=== PATIENT | male | born 1965 | race Caucasian/White ===

== ENCOUNTER 2018-10-04 14:00 | Outpatient (CLI) | payer OTHER ==
[~2018-10-04] VITALS: Ht 175.3 cm; Wt 102.1 kg
[~2018-10-04 14:00] MED LIST: MOME13HF IH
[2018-10-04] MEDS ORDERED: NEBI20TA2 PO (14:03)
[2018-10-04] MEDS ORDERED: NF-ESOM40C PO (14:03)
== END 2018-10-04 14:04 | disposition home or self-care (01) ==
LOC: PREOP 14:00
PROVIDERS: ATTEND Surgery
DX: Z01.818 Encounter for other preprocedural examination (principal)

== ENCOUNTER 2018-10-08 10:01 | Day surgery (SDC) | payer OTHER ==
[~2018-10-08] VITALS: Ht 175.3 cm; Wt 102.1 kg
[~2018-10-08 10:01] MED LIST changes: +NEBI20TA2 PO; +NF-ESOM40C PO
[2018-10-08] MEDS ORDERED: LACTATED RINGERS 1,000 ML IV ONE (10:05)
[2018-10-08] MEDS ORDERED: PROPOFOL INJECTION 50 ML IV ONE (10:13)
[2018-10-08] MEDS ORDERED: MIDAZOLAM 2 MG/2 ML (VERSED) VIAL ONE (10:14)
--- NOTE | 2018-10-08 10:28 | Progress Note-Pre Operative ---
Pre-Operative Progress Note H&P Reviewed The H&P was reviewed, patient examined and no changes noted. Time Seen by Provider: 10:26 Date H&P Reviewed: Oct 08, 2018 Time H&P Reviewed: 10:27 Pre-Operative Diagnosis: Leon's Esophagus, Screening colonoscopy JANELL BUTLER DO Oct 08, 2018 10:28
[2018-10-08] MEDS ORDERED: HURRICAINE EXT TUBE (BENZOCAINE) ONE (10:42)
[2018-10-08] MEDS ORDERED: LACTATED RINGERS 1,000 ML IV STA (10:45)
[2018-10-08] MEDS ORDERED: HURRICAINE EXT TUBE (BENZOCAINE) XX PRN (10:45)
[2018-10-08 10:55] VITALS: BP 156/105
[2018-10-08 11:00] VITALS: BP 151/96
--- NOTE | 2018-10-08 11:02 | Progress Note-Post Operative ---
Post-Operative Progess Note Surgeon (s)/Renewable Energy Broker (s) Surgeon JANELL BUTLER DO Renewable Energy Broker: none Pre-Operative Diagnosis Leon's Esophagus, Screening colonoscopy Post-Operative Diagnosis Leon's esophagus Gastritis Internal hemorrhoids Procedure & Operative Findings Date of Procedure 10/08/18 Procedure Performed/Findings EGD with bx Colonoscopy Anesthesia Type IV sedation by LEVEL VIAL CURVATURE GAUGER Estimated Blood Loss Estimated blood loss (mL): scant Specimens/Packing Specimens Removed antral bx body of stomach bx GE jxn bx x 3 JANELL BUTLER DO Oct 08, 2018 11:02
[2018-10-08] MEDS ORDERED: SUCR1TAB36 PO (11:03)
--- NOTE | 2018-10-08 11:03 | Endoscopy Discharge Instruct ---
Endo Procedure/Findings Findings 1.: Leon's Esophagus 2.: Gastritis 3.: Internal Hemorrhoids Discharge Instructions - Activity: You might feel a little sleepy until tomorrow. This is due to the medicine you received to relax you. Until tomorrow, you should: NOT drive a car, operate machinery or power tools. NOT drink any alcoholic beverages. NOT make any important decisions or sign importortant papers. Do not return to work until tomorrow, unless otherwise instructed. Resume previous activities tomorrow. Diet: Start by taking liquids. If you tolerate liquids, advance to solid food. make an appointment for one week. Instructions: 1.: EGD in 6-8 weeks Notify Physician - If you experience excessive bleeding, unusual abdominal pain, fever, or chest pain, contact your doctor immediately. Follow-Up: - I have received and understand the above instructions and will call my doctor if I have any further questions. Patient Signature Date Nurse Signature Other (Relationship) JANELL BUTLER DO Oct 08, 2018 11:03
[2018-10-08 11:05] VITALS: BP 157/100
[2018-10-08 11:10] VITALS: BP 157/100
[2018-10-08 11:30] VITALS: BP 176/111
[2018-10-08 11:55] VITALS: BP 176/111
--- NOTE | 2018-10-08 19:02 | OPERATIVE REPORT ---
DATE OF SERVICE: 10/08/2018 PREOPERATIVE DIAGNOSES: 1. Chronic gastritis. 2. Screening colonoscopy. POSTOPERATIVE DIAGNOSES: 1. Leon's esophagus. 2. Gastritis. 3. Internal hemorrhoids. PROCEDURE: 1. EGD with biopsy. 2. Colonoscopy. SURGEON: Ortiz Lambert DO INVENTORY CONTROL ANALYST: None. ANESTHESIA: IV sedation by the AQUATICS LIFEGUARD. SPECIMEN: Biopsy from antrum. Biopsy from the stomach and then 3 biopsies from the GE junction. BLOOD LOSS: Scant. FLUIDS: Per anesthesia. POSTOPERATIVE CONDITION: Stable. INDICATION FOR PROCEDURE: The patient is a 53-year-old male who has chronic gastritis, history of Leon's esophagus and needed an EGD as well as he is 53 and needs a screening colonoscopy. FINDINGS: The patient had what looked like a Leon's esophagus as well as some gastritis, questionable small hiatal hernia and in the colon he just had some internal hemorrhoids. PROCEDURE NOTE: After informed consent was obtained, the patient was brought to the endoscopy suite and placed in the bed in left lateral decubitus position. He was administered IV sedation by the AQUATICS LIFEGUARD who then monitored his vitals the entire time, heart rate, blood pressure and pulse ox. Scope was inserted down the mouth through the esophagus and the base of the esophagus where the GE junction, looked like there was some Leon's esophagus, took a picture of this and then pushed into the stomach and towards the antrum, looked like he had some gastritis, took a picture of this pushing the duodenum. Duodenum looked fine. Pulled the scope back into the antrum, did a biopsy of the antrum and then pulled back and did a biopsy of body of stomach. I retroflexed the scope, looked like there was a very small hiatal hernia and then pulled back into the GE junction. Again, here looked like there was some Leon's esophagus and did biopsies in 3 different spots around the GE junction, pulled the scope up the esophagus and out the mouth. Switched camera, switched gloves and went down below, started the colonoscopy pushed the scope into about 140 cm, able to get all the way to cecum, took a picture of appendiceal orifice, noted the ileocecal valve and then slowly withdrew the scope insufflating to look circumferentially at the lundy looking at the cecum up the ascending colon to hepatic flexure, down the transverse colon, the splenic flexure, into the descending colon down in the sigmoid and finally into the rectum, retroflexed the rectal vault, saw some internal hemorrhoids. No other obvious pathology. Scope was removed. The patient tolerated the procedure. He was recovered in endoscopy suite. Job ID: [id number] DocumentID: [id number] Dictated Date: 10/08/2018 13:56:10 School Resource Officer Date: 10/08/2018 19:00:33 Dictated By: ORTIZ LAMBERT DO
== END 2018-10-08 11:55 | disposition home or self-care (01) ==
LOC: ENDO 10:01
PROVIDERS: ATTEND Surgery
DX: Z12.11 Encounter for screening for malignant neoplasm of colon (principal); K22.70 Barrett's esophagus without dysplasia; K29.50 Unspecified chronic gastritis without bleeding; K64.8 Other hemorrhoids; I10 Essential (primary) hypertension; J45.909 Unspecified asthma, uncomplicated; K21.9 Gastro-esophageal reflux disease without esophagitis; Z79.899 Other long term (current) drug therapy
CPT/HCPCS: 88305

== ENCOUNTER 2020-02-24 23:49 | Emergency (ER) | payer OTHER ==
[~2020-02-24] VITALS: Ht 175.3 cm; Wt 106.1 kg
[~2020-02-24 23:49] MED LIST changes: +SUCR1TAB36 PO
[2020-02-25 00:01] VITALS: BP 192/116
[2020-02-25] MEDS ORDERED: TETRACAINE 0.5% OPHTH SOLN 4 ML BTL (SINGLE DOSE ONLY) ONE (00:16)
[2020-02-25] MEDS ORDERED: FLUORESCEIN (FLUOR-I-STRIPS) 1 MG STRP ONE (00:16)
--- NOTE | 2020-02-25 00:30 | ED EENT ---
History of Present Illness General Chief Complaint: Eye Problems Stated Complaint: F O IN RT EYE Nursing Triage Note: PT AMBULATE TO ROOM 05 WITH C/O FOREIGN BODY IN RIGHT EYE. 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 Source: patient Exam Limitations: no limitations History of Present Illness Date Seen by Provider: Feb 25, 2020 Time Seen by Provider: 00:25 Initial Comments 54-year-old male presents to the emergency department today with a chief complaint of right eye pain and drainage. Patient states that he was working with fiberglass earlier in the day and believes he might of gotten some fiberglass in his right eye. Patient states that with drainage his vision is a little bit blurry otherwise its not. He states that he feels like there is something still in his eye. All other review of systems reviewed and negative except as stated above. Timing/Duration: abrupt Severity: mild Location: eye (R) Prearrival Treatment: no prearrival treatment Associated Symptoms: denies symptoms Allergies and Home Medications Allergies Coded Allergies: No Known Drug Allergies (Unverified , 10/04/18) Home Medications Esomeprazole Magnesium 40 Mg Cap, 40 MG PO DAILY PRN for HEARTBURN, (Reported) Mometasone/Formoterol 13 Gm Hfa.aer.ad, 13 GM IH BID PRN for SHORTNESS OF BREATH, (Reported) Nebivolol HCl 20 Mg Tablet, 20 MG PO DAILY, (Reported) Sucralfate 1 Gm Tablet, 1 GM PO QIDACHS Prescribed by: JANELL BUTLER on 10/08/18 1103 Patient Home Medication List Home Medication List Reviewed: Yes Review of Systems Review of Systems Constitutional: see HPI Eyes: See HPI, Drainage, Foreign Body Sensation, Pain; Denies Vision Changes Ears: No Symptoms Reported Nose: no symptoms reported Mouth: no symptoms reported Throat: no symptoms reported Respiratory: no symptoms reported Cardiovascular: no symptoms reported Gastrointestinal: no symptoms reported Musculoskeletal: no symptoms reported Skin: no symptoms reported All Other Systems Reviewed Negative Unless Noted: Yes Past Astfzae-Bupneb-Erwfuc Hx Patient Social History Alcohol Use: Regular Use Alcohol Beverage of Choice: Beer, Whiskey Recreational Drug Use: No Smoking Status: Never a Smoker Recent Foreign Travel: No Contact w/Someone Who Travel: No Recent Infectious Disease Expo: No Recent Hopitalizations: No Physical Abuse: No Sexual Abuse: No Mistreated: No Fear: No Seasonal Allergies Seasonal Allergies: No Past Medical History Surgeries: Yes (rhinoplasty, knee scope) Respiratory: Yes Asthma Cardiac: Yes Hypertension Neurological: No Genitourinary: No Gastrointestinal: Yes (chronic gastritis) Gastroesophageal Reflux, Leon's Esophagus Musculoskeletal: No Endocrine: No HEENT: No Cancer: No Psychosocial: No Integumentary: No Blood Disorders: No Visual Acuity : Eye Location: Right (20/25) Vision Acuity Degree: 20/25 Physical Exam Vital Signs Vital Signs - First Documented 02/25/20 00:01 Temp 36.5 Pulse 68 Resp 17 B/P (MAP) 192/116 (141) O2 Delivery Room Air Height, Weight, BMI Height: 5'9.00" Weight: 225lbs. 0.0oz. 102.927012tm; 34.00 BMI Method: General Appearance: WD/WN, no apparent distress Eyes: right eye lid inflammation; left eye normal inspection, left eye PERRL, left eye EOMI Cardiovascular: regular rate, rhythm Respiratory: no respiratory distress, no accessory muscle use Neurologic/Psychiatric: alert, normal mood/affect, oriented x 3 Skin: normal color, warm/dry Progress/Results/Core Measures Results/Orders My Orders Orders - CARLA PHAN MD Fluorescein Strips ([id number]) (02/25/20 00:16) Tetracaine 0.5% Ophth Anupama Sdv (Tetracai (02/25/20 00:16) Vital Signs/I&O 02/25/20 00:01 Temp 36.5 Pulse 68 Resp 17 B/P (MAP) 192/116 (141) O2 Delivery Room Air Blood Pressure Mean: 141 Progress Progress Note : Time: 00:48 Progress Note Patient's visual acuity left 20/30, right 20/25, bilaterally 20/25. Patient was examined with a slit lamp. Demonstrated ciliary flush. No foreign bodies identified. Patient had minimal if any uptake on fluorescein staining. Patient's blood pressure is quite elevated this evening. He has not been taking his blood pressure medication. Is treated with clonidine 0.1 mg here in the emergency department and patient states that he will go home and continue to take his blood pressure medicine as directed. Patient is advised to follow-up with an eye doctor by the end of the week to ensure that his eye is healing. He verbalized understanding of his discharge instructions. All questions are sought and answered and he is stable for discharge. Departure Impression Primary Impression: Sensation of foreign body in eye Additional Impression: Elevated blood pressure reading Disposition: 01 HOME, SELF-CARE Condition: Stable Departure-Patient Inst. Decision time for Depature: 00:43 Referrals: MENA NARANJO MD (PCP/Family) Primary Care Physician Patient Instructions: Corneal Abrasion (DC) Add. Discharge Instructions: Use ibuprofen as needed for eye pain and discomfort. Use the antibiotic eye drop as directed for the next week. Please continue to take your blood pressure medications as directed and follow up with your primary care doctor. Call and follow up by the end of the week with an eye doctor, to ensure your eye is healing appropriately. All discharge instructions reviewed with patient and/or family. Voiced understanding. Scripts Ciprofloxacin HCl (Ciloxan) 5 Ml Drops 3 DROPS OP BID for 5 Days, DROPS 3 Refills 2 drops right eye every 4 hours for 1 week Prov: CARLA PHAN MD 02/25/20 CARLA PHAN MD Feb 25, 2020 00:30
[2020-02-25] MEDS ORDERED: CIPR5DRO OP (00:52)
[2020-02-25] MEDS ORDERED: cloNIDine 0.1 MG (CATAPRES) TAB PO ONE (01:00)
[2020-02-25] MEDS ORDERED: TETANUS,DIPTH,PERTUSS P/F (BOOSTRIX) 0.5 ML VIAL IM ONE (01:00)
== END 2020-02-25 01:06 | disposition home or self-care (01) ==
LOC: EDUNIT# 23:49 → ER 23:54
DX: H57.89 Other specified disorders of eye and adnexa (principal); I10 Essential (primary) hypertension; K21.9 Gastro-esophageal reflux disease without esophagitis; J45.909 Unspecified asthma, uncomplicated; Z79.52 Long term (current) use of systemic steroids
CPT/HCPCS: 90715; 99284

== ENCOUNTER → 2021-02-24 | Outpatient (CLI) | payer OTHER ==
[~2021-02-24] MED LIST changes: +CIPR5DRO OP
--- NOTE | 2021-02-24 09:43 | Diagnostic Imaging Report ---
PA and lateral chest at 908 hours. INDICATION: Chest pressure. COMPARISON: None. FINDINGS: The heart size is within normal limits. The lungs are clear. There is no evidence for failure, pneumonia or for a pleural effusion. The mediastinum is not widened. The osseous structures are intact. IMPRESSION: There is no evidence for active disease. Dictated by: Dictated on workstation # [id number]
== END ==
LOC: RAD 08:33
DX: R07.89 Other chest pain (principal)
CPT/HCPCS: 71046

== ENCOUNTER 2021-06-14 23:45 | Emergency (ER) | payer OTHER ==
[~2021-06-14] VITALS: Ht 175 cm; Wt 106.6 kg
[2021-06-15] MEDS ORDERED: ASPIRIN 81 MG CHEW (CHILDREN'S ASA) PO ONE
[2021-06-15] MEDS ORDERED: NITROGLYCERIN 0.4 MG SL TABS BTL 25'S SL PRN
--- NOTE | 2021-06-15 00:05 | ED Chest Pain ---
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[employer] PT C/O LEFT UPPER CHEST PAIN THAT BEGAN AROUND NOON TODAY NO RADIATION OF PAIN NOTHING WORSENS PAIN STATES IF HE GRABS HIS CHEST AND PULLS ON HIS LEFT UPPER CHEST WITH HIS RIGHT HAND IT EASES HIS PAIN A LITTLE BIT RATES PAIN 6/10 AT WORKS, 4/10 NOW NO SHORTNESS OF BREATH NO SWEATS NO SWELLING IN LEGS/ FEET OR PAIN IN CALVES NO NAUSEA/VOMITING NO DIZZINESS OR SYNCOPE NO PALPITATIONS NO FEVER OR RECENT ILLNESS NO COUGH HAS NOT TAKEN ANYTHING FOR SYMPTOMS PT HAS HISTORY OF HTN AND FREQUENTLY FORGETS TO TAKE HIS MEDICATION, BUT DID TAKE IT TODAY ALSO HAS HISTORY OF GERD WITH WHITT'S ESOPHAGITIS, AND ASTHMA PT HAD SIMILAR PAIN A COUPLE OF MONTHS AGO, BUT WAS NOT THIS BAD FOLLOWED UP WITH DR. NARANJO, AND HE DID A STRESS TEST IN THE OFFICE, THAT WAS REPORTEDLY NORMAL. PT LAST SAW HIM ABOUT A MONTH AGO PT HAS NEVER SEEN A CHIP TESTER PT HAS NOT HAD COVID OR FLU VACCINES PCP: DR. NARANJO Allergies and Home Medications Allergies Coded Allergies: No Known Drug Allergies (Unverified , 10/04/18) Patient Home Medication List Home Medication List Reviewed: Yes Ciprofloxacin HCl (Ciloxan) 5 Ml Drops, 3 DROPS OP BID Prescribed by: CARLA PHAN on 02/25/20 0052 Esomeprazole Magnesium (Nexium) 40 Mg Cap, 40 MG PO DAILY PRN for HEARTBURN, (Reported) Entered as Reported by: BETZY CORDOBA on 10/04/18 1403 Mometasone/Formoterol (Dulera 200 Mcg/5 Mcg Inhaler) 13 Gm Hfa.aer.ad, 13 GM IH BID PRN for SHORTNESS OF BREATH, (Reported) Entered as Reported by: BETZY CORDOBA on 10/04/18 1357 Nebivolol HCl (Bystolic) 20 Mg Tablet, 20 MG PO DAILY, (Reported) Entered as Reported by: BETZY CORDOBA on 10/04/18 1403 Sucralfate (Carafate) 1 Gm Tablet, 1 GM PO QIDACHS Prescribed by: JANELL BUTLER on 10/08/18 1103 Review of Systems Review of Systems Constitutional: no symptoms reported EENTM: No Symptoms Reported Respiratory: No Symptoms Reported Cardiovascular: See HPI, Chest Pain Gastrointestinal: No Symptoms Reported Genitourinary: No Symptoms Reported Musculoskeletal: no symptoms reported Skin: no symptoms reported Psychiatric/Neurological: No Symptoms Reported Endocrine: No Symptoms Reported Hematologic/Lymphatic: No Symptoms Reported Past Zsiucjv-Kfqzgc-Rwtjro Hx Patient Social History Tobacco Use?: No Substance use?: No Alcohol Use?: Yes Alcohol Frequency: Couple times a week Seasonal Allergies Seasonal Allergies: No Past Medical History Surgeries: Yes (rhinoplasty, knee scope) Nose, Orthopedic Respiratory: Yes Asthma Cardiac: Yes Hypertension Neurological: No Genitourinary: No Gastrointestinal: Yes (chronic gastritis) Gastroesophageal Reflux, Whitt's Esophagus Musculoskeletal: No Endocrine: No HEENT: No Cancer: No Psychosocial: No Integumentary: No Blood Disorders: No Physical Exam Vital Signs Vital Signs - First Documented 06/14/21 23:55 Temp 36.6 Pulse 58 Resp 20 Pulse Ox 97 O2 Delivery Room Air Capillary Refill : Height, Weight, BMI Height: 5'9.00" Weight: 225lbs. 0.0oz. 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 II-XII Norm as Tested Skin: Normal Color, Warm/Dry; No Rash Progress/Results/Core Measures Results/Orders Lab Results Laboratory Tests Test 06/15/21 00:01 Range/Units White Blood Count 13.3 H 4.3-11.0 10^3/uL Red Blood Count 5.63 H 4.30-5.52 10^6/uL Hemoglobin 16.2 13.3-17.7 g/dL Hematocrit 49 40-54 % Mean Corpuscular Volume 87 80-99 fL Mean Corpuscular Hemoglobin 29 25-34 pg Mean Corpuscular Hemoglobin Concent 33 32-36 g/dL Red Cell Distribution Width 13.6 10.0-14.5 % Platelet Count 340 130-400 10^3/uL Mean Platelet Volume 10.1 9.0-12.2 fL Immature Granulocyte % (Auto) 0 % Neutrophils (%) (Auto) 54 42-75 % Lymphocytes (%) (Auto) 32 12-44 % Monocytes (%) (Auto) 8 0-12 % Eosinophils (%) (Auto) 5 0-10 % Basophils (%) (Auto) 1 0-10 % Neutrophils # (Auto) 7.2 1.8-7.8 10^3/uL Lymphocytes # (Auto) 4.3 H 1.0-4.0 10^3/uL Monocytes # (Auto) 1.0 0.0-1.0 10^3/uL Eosinophils # (Auto) 0.7 H 0.0-0.3 10^3/uL Basophils # (Auto) 0.1 0.0-0.1 10^3/uL Immature Granulocyte # (Auto) 0.0 0.0-0.1 10^3/uL Prothrombin Time 12.8 12.2-14.7 SEC INR Comment 0.9 0.8-1.4 Activated Partial Thromboplast Time 29 24-35 SEC D-Dimer 0.22 0.00-0.49 UG/ML Sodium Level 143 135-145 MMOL/L Potassium Level 4.1 3.6-5.0 MMOL/L Chloride Level 105 98-107 MMOL/L Carbon Dioxide Level 22 21-32 MMOL/L Anion Gap 16 H 5-14 MMOL/L Blood Urea Nitrogen 15 7-18 MG/DL Creatinine 0.94 0.60-1.30 MG/DL Estimat Glomerular Filtration Rate 96 BUN/Creatinine Ratio 16 Glucose Level 96 70-105 MG/DL Calcium Level 9.5 8.5-10.1 MG/DL Corrected Calcium 8.5-10.1 MG/DL Magnesium Level 2.3 1.6-2.4 MG/DL Total Bilirubin 0.4 0.1-1.0 MG/DL Aspartate Amino Transf (AST/SGOT) 21 5-34 U/L Alanine Aminotransferase (ALT/SGPT) 35 0-55 U/L Alkaline Phosphatase 58 40-136 U/L Total Creatine Kinase 88 30-200 U/L Creatine Kinase MB 0.7 <6.6 NG/ML Myoglobin 30.4 10.0-92.0 NG/ML Troponin I < 0.028 <0.028 NG/ML B-Type Natriuretic Peptide 18.3 <100.0 PG/ML Total Protein 7.4 6.4-8.2 GM/DL Albumin 4.6 H 3.2-4.5 GM/DL Amylase Level 67 25-125 U/L Lipase 54 8-78 U/L Serum Alcohol < 10 <10 MG/DL Influenza Type A (RT-PCR) Not Detected Not Detecte Influenza Type B (RT-PCR) Not Detected Not Detecte SARS-CoV-2 RNA (RT-PCR) Not Detected Not Detecte My Orders Orders - BERRY SIMMONS DO Cbc With Automated Diff (06/14/21 23:52) Magnesium (06/14/21 23:52) Ekg Tracing (06/14/21 23:52) Comprehensive Metabolic Panel (06/14/21 23:52) Myoglobin Serum (06/14/21 23:52) Protime With Inr (06/14/21 23:52) Partial Thromboplastin Time (06/14/21 23:52) O2 (06/14/21 23:52) Monitor-Rhythm Ecg Trace Only (06/14/21 23:52) Ed Iv/Invasive Line Start (06/14/21 23:52) Creatine Kinase (06/14/21 23:52) Creatine Kinase Mb (06/14/21 23:52) Lipase (06/14/21 23:52) Amylase (06/14/21 23:52) Bnp Jean Claude (06/14/21 23:52) Troponin I Jean Claude (06/14/21 23:52) Nitroglycerin 0.4 Mg Btl 25's (Nitrostat (06/15/21 00:00) Aspirin Chewable Tablet (Baby Aspirin Ch (06/15/21 00:00) Chest 1 View, Ap/Pa Only (06/15/21 00:01) Alcohol (06/15/21 00:02) Covid 19 Inhouse Test (06/15/21 00:02) Influenza A And B By Pcr (06/15/21 00:02) Isolation Central Supply Req (06/15/21 00:02) Fibrin Degradation Products (06/15/21 00:01) Ketorolac Injection (Toradol Injection) (06/15/21 01:15) Ketorolac Injection (Toradol Injection) (06/15/21 01:08) Medications Given in ED Current Medications Medications Dose Ordered Sig/Simi Route Start Time Stop Time Status Last Admin Dose Admin Aspirin 324 mg ONCE ONCE PO 06/15/21 00:00 06/15/21 00:01 DC 06/15/21 00:06 324 MG Ketorolac Tromethamine 30 mg ONCE ONCE IVP 06/15/21 01:15 06/15/21 01:17 DC 06/15/21 01:12 30 MG Nitroglycerin 0.4 mg UD PRN SL 06/15/21 00:00 06/15/21 02:13 DC 06/15/21 00:06 0.4 MG Vital Signs/I&O 06/14/21 23:55 Temp 36.6 Pulse 58 Resp 20 B/P (MAP) Pulse Ox 97 O2 Delivery Room Air Progress Progress Note : Progress Note GIVEN ASPIRIN AND NTG X 3--NO CHANGE IN PAIN BP DOWN FROM 180'S TO 140'S WITH NTG. GIVEN TORADOL WITH NO RELIEF OF PAIN PT ADAMANTLY REFUSES ADMIT TO HOSPITAL AND WANTS TO GO HOME AMA PAPERS SIGNED Initial ECG Impression Date: Jun 14, 2021 Initial ECG Impression Time: 23:55 Initial ECG Rate: 54 Initial ECG Rhythm: Normal Sinus Diagnostic Imaging Comments CXR--NO ACUTE PROCESS, PENDING RADIOLOGIST REVIEW Reviewed: Reviewed by Me Departure Impression Primary Impression: Left against medical advice Additional Impressions: Chest pain HTN (hypertension) Disposition: 07 AGAINST MEDICAL ADVICE Condition: Against Medical Advice Departure-Patient Inst. Referrals: MENA NARANJO MD (PCP/Family) Primary Care Physician Patient Instructions: Chest Pain, Adult ED, High Blood Pressure ED, Leaving Against Medical Advice Add. Discharge Instructions: FOLLOW UP WITH YOUR DR THIS WEEK FOR FURTHER CARE RETURN TO ER IF WORSE All discharge instructions reviewed with patient and/or family. Voiced understanding. BERRY SIMMONS DO Jun 15, 2021 00:05
[2021-06-15 00:12] LABS: BASOPHILS # (AUTO) 0.1 10^3/uL (0.0-0.1); BASOPHILS % (AUTO) 1 % (0-10); EOSINOPHILS # (AUTO) 0.7 10^3/uL (0.0-0.3); EOSINOPHILS % (AUTO) 5 % (0-10); HEMATOCRIT 49 % (40-54); HEMOGLOBIN 16.2 g/dL (13.3-17.7); LYMPHOCYTES # (AUTO) 4.3 10^3/uL (1.0-4.0); LYMPHOCYTES % (AUTO) 32 % (12-44); MEAN CORPUSCULAR HEMOGLOBIN 29 pg (25-34); MEAN CORPUSCULAR HGB CONC 33 g/dL (32-36); MEAN CORPUSCULAR VOLUME 87 fL (80-99); MEAN PLATELET VOLUME 10.1 fL (9.0-12.2); MONOCYTES % (AUTO) 8 % (0-12); NEUTROPHILS # (AUTO) 7.2 10^3/uL (1.8-7.8); NEUTROPHILS % (AUTO) 54 % (42-75); PLATELET COUNT 340 10^3/uL (130-400); WHITE BLOOD COUNT 13.3 10^3/uL (4.3-11.0)
[2021-06-15 00:18] LABS: ALBUMIN 4.6 GM/DL (3.2-4.5); CHLORIDE 105 MMOL/L (98-107); POTASSIUM 4.1 MMOL/L (3.6-5.0); SODIUM 143 MMOL/L (135-145)
[2021-06-15 00:19] LABS: CALCIUM 9.5 MG/DL (8.5-10.1)
[2021-06-15 00:20] LABS: AMYLASE 67 U/L (25-125); GLUCOSE 96 MG/DL (70-105); TOTAL PROTEIN 7.4 GM/DL (6.4-8.2)
[2021-06-15 00:21] LABS: CARBON DIOXIDE 22 MMOL/L (21-32)
[2021-06-15 00:22] LABS: BILIRUBIN,TOTAL 0.4 MG/DL (0.1-1.0)
[2021-06-15 00:24] LABS: ALKALINE PHOSPHATASE 58 U/L (40-136); CREATININE SERUM 0.94 MG/DL (0.60-1.30); GFR ESTIMATED 96
[2021-06-15 00:25] LABS: BUN/CREATININE RATIO 16
[2021-06-15 00:27] LABS: ALANINE AMINOTRANSFERASE 35 U/L (0-55); MAGNESIUM 2.3 MG/DL (1.6-2.4)
[2021-06-15 00:28] LABS: LIPASE 54 U/L (8-78)
[2021-06-15 00:29] LABS: CREATINE KINASE 88 U/L (30-200)
[2021-06-15 00:35] LABS: CREATINE KINASE MB 0.7 NG/ML (<6.6)
[2021-06-15 00:58] LABS: INR 0.9 (0.8-1.4); PROTHROMBIN TIME PATIENT 12.8 SEC (12.2-14.7)
[2021-06-15 00:59] LABS: FIBRIN DEGRADATION PRODUCTS 0.22 UG/ML (0.00-0.49)
[2021-06-15] MEDS ORDERED: KETOROLAC 60 MG/2 ML VIAL ONE (01:08)
[2021-06-15] MEDS ORDERED: KETOROLAC 30 MG/ML VIAL IVP ONE (01:15)
--- NOTE | 2021-06-15 07:31 | Diagnostic Imaging Report ---
HISTORY: Chest pain TECHNIQUE: Frontal view the chest COMPARISON: 02/24/2021 FINDINGS: Lung volumes are normal. No focal consolidation is seen. There is no pleural effusion or pneumothorax. The cardiac silhouette is normal in size. IMPRESSION: 1. No acute pulmonary abnormality. Dictated by: Dictated on workstation # [id number]
== END 2021-06-15 01:25 | disposition left against medical advice (07) ==
LOC: EDUNIT# 23:45 → ER 23:48
DX: R07.9 Chest pain, unspecified (principal); I10 Essential (primary) hypertension; E66.9 Obesity, unspecified; Z68.34 Body mass index [BMI] 34.0-34.9, adult; Z20.822 Contact with and (suspected) exposure to COVID-19
CPT/HCPCS: 71045; 80053; 82150; 82550; 82553; 83690; 83735; 83874; 83880; 84484; 85025; 85379; 85610; 85730; 87636; 93005; 93041; 99284; G0480; 36415; 80320

== ENCOUNTER → 2021-07-06 | Outpatient (CLI) | payer OTHER | LOC: RAD | DX: Z53.9 Procedure and treatment not carried out, unspecified reason (principal) ==

== ENCOUNTER 2022-03-20 01:44 | Inpatient (IN) | payer OTHER ==
[~2022-03-20] VITALS: Ht 175.3 cm; Wt 108.8 kg
[~2022-03-20 01:44] MED LIST changes: -MOME13HF IH; +MOME13HF11 IH
[2022-03-20] MEDS ORDERED: EPINEPHrine 1 MG INJECTION 4 MG in NS (IVPB) 248 ML IV SCH (05:00)
[2022-03-20 05:21] LABS: BASOPHILS # (AUTO) 0.2 10^3/uL (0.0-0.1); BASOPHILS % (AUTO) 0 % (0-10); EOSINOPHILS % (AUTO) 0 % (0-10); HEMATOCRIT 38 % (40-54); HEMOGLOBIN 12.8 g/dL (13.3-17.7); LYMPHOCYTES # (AUTO) 0.8 10^3/uL (1.0-4.0); LYMPHOCYTES % (AUTO) 2 % (12-44); MEAN CORPUSCULAR HEMOGLOBIN 30 pg (25-34); MEAN CORPUSCULAR HGB CONC 34 g/dL (32-36); MEAN CORPUSCULAR VOLUME 87 fL (80-99); MEAN PLATELET VOLUME 10.1 fL (9.0-12.2); MONOCYTES # (AUTO) 1.6 10^3/uL (0.0-1.0); MONOCYTES % (AUTO) 4 % (0-12); NEUTROPHILS # (AUTO) 30.2 10^3/uL (1.8-7.8); NEUTROPHILS % (AUTO) 85 % (42-75); PLATELET COUNT 237 10^3/uL (130-400)
[2022-03-20 05:23] LABS: WHITE BLOOD COUNT 35.5 10^3/uL (4.3-11.0)
[2022-03-20 05:29] LABS: ALBUMIN 3.3 GM/DL (3.2-4.5)
[2022-03-20 05:30] LABS: POTASSIUM 3.9 MMOL/L (3.6-5.0)
[2022-03-20 05:31] LABS: CALCIUM 7.9 MG/DL (8.5-10.1)
[2022-03-20 05:32] LABS: TOTAL PROTEIN 5.7 GM/DL (6.4-8.2)
[2022-03-20 05:34] LABS: BILIRUBIN,TOTAL 1.5 MG/DL (0.1-1.0)
[2022-03-20 05:36] LABS: CREATININE SERUM 1.49 MG/DL (0.60-1.30)
[2022-03-20] MEDS: VASOPRESSIN INJECTION 20 UNIT in NS (IVPB) 100 ML IV SCH ×2 (05:53→16:34)
[2022-03-20] MEDS: NOREPINEPHRINE 8 MG/250 ML 250 ML IV SCH ×2 (05:53→17:45)
[2022-03-20] MEDS: NS IV 1000 ML 1,000 ML IV SCH ×5 (05:53→21:00)
[2022-03-20] MEDS ORDERED: NS IV 500 ML 500 ML IV PRN (06:00)
[2022-03-20 06:01] LABS: BAND NEUTROPHILS 15 %; LYMPHOCYTES % (MANUAL) 2 %; MONOCYTES % (MANUAL) 4 %; NEUTROPHILS % (MANUAL) 79 %; PLATELET CLUMPS OCCASIONAL
[2022-03-20] MEDS: KCL 20 MEQ TAB (K-DUR) PO SCH (06:05)
[2022-03-20] MEDS: POTASSIUM CL 10MEQ/50ML IVPB 50 ML IV SCH (06:05)
[2022-03-20] MEDS: MAGNESIUM 1 GM/100 ML IVPB 100 ML IV SCH ×3 (06:06→09:22)
--- NOTE | 2022-03-20 07:40 | Tele-ICU Consult ---
Progress Note 56 y/o male admitted with suspected septic shock Had pressors started BP now 160/68 Pulse 92 O2 sat 91% WBC : 35,000 Started on cefipime No other history or information currently avialable Imp: septic shock. PLAN: will check lactate and get cultures Focused Exam Lactate Level 03/20/22 05:12: Lactic Acid Level 3.34*H 03/20/22 07:05: Lactic Acid Level 2.60*H Height, Weight, BMI Height: 5'9.00" Weight: 225lbs. 0.0oz. 102.004570ja; 34.68 BMI Method: Lactic Acid Level Laboratory Tests Test 03/20/22 05:12 03/20/22 07:05 Lactic Acid Level 3.34 MMOL/L (0.50-2.00) *H 2.60 MMOL/L (0.50-2.00) *H Labs Laboratory Tests 03/20/22 05:12 Results Results/Procedures Labs Laboratory Tests 03/20/22 05:12 Patient resulted labs reviewed. Results Labs Labs Laboratory Tests 03/20/22 05:12: White Blood Count 35.5*H, Red Blood Count 4.34, Hemoglobin 12.8L, Hematocrit 38L , Mean Corpuscular Volume 87, Mean Corpuscular Hemoglobin 30, Mean Corpuscular Hemoglobin Concent 34, Red Cell Distribution Width 13.5, Platelet Count 237, Mean Platelet Volume 10.1, Immature Granulocyte % (Auto) 8, Neutrophils (%) (Auto) 85H, Lymphocytes (%) (Auto) 2L, Monocytes (%) (Auto) 4, Eosinophils (%) (Auto) 0, Basophils (%) (Auto) 0, Neutrophils # (Auto) 30.2H, Lymphocytes # (Auto) 0.8L, Monocytes # (Auto) 1.6H, Eosinophils # (Auto) 0.0, Basophils # (Auto) 0.2H, Immature Granulocyte # (Auto) 2.7H, Neutrophils % (Manual) 79, Lymphocytes % (Manual) 2, Monocytes % (Manual) 4, Band Neutrophils 15, Clumped Platelets OCCASIONAL, Sodium Level 138, Potassium Level 3.9, Chloride Level 105, Carbon Dioxide Level 18L, Anion Gap 15H, Blood Urea Nitrogen 24H, Creatinine 1.49H, Estimat Glomerular Filtration Rate 55, BUN/Creatinine Ratio 16, Glucose Level 136H, Lactic Acid Level 3.34*H, Calcium Level 7.9L, Corrected Calcium 8.5, Total Bilirubin 1.5H, Aspartate Amino Transf (AST/SGOT) 52H, Alanine Aminotransferase (ALT/SGPT) 79H, Alkaline Phosphatase 67, Total Protein 5.7L, Albumin 3.3 03/20/22 05:13: Magnesium Level 1.6 03/20/22 07:05: Lactic Acid Level 2.60*H NADINE MOSELEY MD Mar 20, 2022 07:40
[2022-03-20] MEDS: CEFEPIME INJECTION 1,000 MG in NS (IVPB) 50 ML IV SCH ×3 (08:35→18:50)
[2022-03-20 09:24] LABS: BILIRUBIN,URINE NEGATIVE (NEGATIVE); CLARITY,URINE CLEAR; COLOR,URINE YELLOW; GLUCOSE, URINE (UA) NEGATIVE (NEGATIVE); KETONES,URINE NEGATIVE (NEGATIVE); LEUKOCYTE ESTERASE ,URINE NEGATIVE (NEGATIVE); NITRITE,URINE NEGATIVE (NEGATIVE); PH,URINE 5.5 (5-9); PROTEIN,URINE 1+ (NEGATIVE)
[2022-03-20 09:40] LABS: AMORPHOUS SEDIMENT,UR RARE AMOR URATES /LPF; BACTERIA,URINE TRACE /HPF; RBC,URINE 0-2 /HPF; SQUAMOUS EPITHELIAL CELL,UR 0-2 /HPF; WBC,URINE 0-2 /HPF
[2022-03-20] MEDS ORDERED: RT-ALBUTEROL SULF 2.5 MG/3 ML PRE-MIX VIAL ONE (11:59)
[2022-03-20 12:04] VITALS: BP 122/72
--- NOTE | 2022-03-20 12:07 | History & Physical-Hospitalist ---
ISIDRO FRANK 03/20/22 1207: History of Present Illness HPI/Chief Complaint Radha joy a 56 year old male with PMH of HTN, Asthma, Obesity, and gastritis who presented to [facility] on 03/19/22 via EMS after a syncopal episode at home. Prior to passing out the patient has been experiencing SOB, Cough, N/V, decreased appetite, and fever as high as 104 since . Upon arriving to [place] he was found to have be in septic shock with a LA of 5.4, tachycardia, hypotension, and significant leukocytosis. CT while at [facility] revealed a large are of consolidation in LLL and Cefepime and azithromycin as well as IVF were initiated prior to transfer to our facilities for ICU care. This morning he reports feeling much better than last night. He continues to have significant SOB and cough, but denies LH, dizziness, CP, palpitations, abd pain, N/V/D, Dysuria, or hematuria. Source: patient Date Seen 03/20/22 Time Seen by a Provider: 10:00 Attending Physician Akshat Cevallos MD PCP Admitting Physician: Aleja Franco MD Attending Physician: Aleja Franco MD Referring Physician Date of Admission Mar 20, 2022 at 04:40 Home Medications & Allergies Home Medications Reviewed patient Home Medication Reconciliation performed by pharmacy medication reconciliations surveying technician and/or nursing. Patients Allergies have been reviewed. Allergies Allergies Coded Allergies No Known Drug Allergies (Unverified10/04/18) Past Fbgtvyd-Tnfkwd-Tfvleb Hx Patient Social History Tobacco Use?: No Smoking Status: Never a Smoker Use of E-Cig and/or Vaping dev: No Substance use?: No Alcohol Use?: Yes Alcohol type: Beer, Hard Liquor Alcohol Frequency: Couple times a week Pt feels they are or have been: No Seasonal Allergies Seasonal Allergies: No Current Status Advance Directives: No Communicates: Verbally Primary Language: Kazakh Preferred Spoken Language: Kazakh Is interpretation needed?: No Sensory deficits: Vision impairment Implanted or Applied Medical D: None Past Medical History Surgeries: Nose, Orthopedic Asthma Hypertension Gastroesophageal Reflux, Leon's Esophagus Blood Disorders: No Family Medical History Cancer (Bladder, father), Diabetes (mother), Other Conditions/Hx (lupus, mother) Review of Systems Constitutional: No chills, No dizziness; fever (resolved) EENTM: No hearing loss, No vision loss Respiratory: cough, short of breath Cardiovascular: No chest pain, No palpitations Gastrointestinal: No abdominal pain, No constipation, No diarrhea; nausea (resolved), vomiting (resolved) Genitourinary: No dysuria, No hematuria Musculoskeletal: no symptoms reported Skin: no symptoms reported Psychiatric/Neurological: Denies Headache, Denies Weakness Physical Exam Physical Exam Vital Signs Vital Signs - First Documented 03/20/22 03/20/22 03/20/22 03/20/22 04:35 04:40 04:45 06:12 Temp 36.6 Pulse 93 Resp 16 B/P (MAP) 92/62 (72) Pulse Ox 97 O2 Delivery Room Air O2 Flow Rate 2.00 Capillary Refill : Height, Weight, BMI Height: 5'9.00" Weight: 225lbs. 0.0oz. 102.112928xg; 34.68 BMI Method: General Appearance: No Apparent Distress, Obese Eyes: Bilateral Eye PERRL, Bilateral Eye EOMI HEENT: PERRL/EOMI, Pharynx Normal, Moist Mucous Membranes Neck: Full Range of Motion, Non Tender, Supple Respiratory: Chest Non Tender, No Accessory Muscle Use, No Respiratory Distress, Other (decreased breath sounds LLL) Cardiovascular: Regular Rate, Rhythm, No Murmur, Normal Peripheral Pulses Gastrointestinal: Normal Bowel Sounds, Non Tender, Soft Extremity: Normal Capillary Refill, Non Tender, No Calf Tenderness, No Pedal Edema Neurologic/Psychiatric: Alert, Oriented x3, No Motor/Sensory Deficits, Normal Mood/Affect Skin: Normal Color, Warm/Dry Lymphatic: No Adenopathy Results Results/Procedures Labs Laboratory Tests 03/20/22 05:12 Patient resulted labs reviewed. Assessment/Plan Admission Diagnosis Septic Shock secondary to CAP Assessment and Plan Septic shock secondary to CAP -Septic shock due to tachycardia, hypotension, Leukocytosis, and severe LA. CT at [place] showed large LLL pneumonia initially hidden by cardiac shadow on CXR. - Cefepime 1g Q6hr IV. Azithromycin was initiated at [place] yesterday. Will hold off at this time due to broad coverage of cefepime - Pt. is normotensive at this time and afebrile. LA has improved from initial 5.4 at [place] to most recent of 3.25. WBC count today of 35.5. -Will continue abx and IVF and monitor closely STEPHANY -Cr of 1.49. Pt. had Cr of .94 in May of 2021 in the ED. Will continue IVF's and monitor closely Lactic Acidosis -Improving as state above. Monitor closely Anemia -hgb 12.8. minimal at this time. will monitor Hypertension -Normotensive at this time. Will hold home meds. Elevated Liver enzymes -03/20/22 AST 52 ALT 79. likely secondary to septic shock. Monitor for now. DVT prophylaxis -Lovenox 40mg SQ QD & SCDs ALEJA FRANCO MD 03/21/22 1235: Assessment/Plan Admission Diagnosis Admission Status: Inpatient Order (span 2 midnights) Reason for Inpatient Admission: see below Assessment and Plan Patient admitted to the hospital due to septic shock due to CAP. He is doing much better this morning and BP has improved with IVF. He has not necessitated vasopressors. Will continue on Cefepime and add MAT protocol. Pt request prn aalbuterol treatment. I went and spoke with RT just after seeing him and they will admistered. Pt states his will bring in his Dulera to continue. Will monitor in the ICU one more night and if doing well can transfer out to floor. Await cultures from outside facility. Diagnosis/Problems Diagnosis/Problems (1) Septic shock Supervisory-Addendum Brief Verification & Attestation Participated in pt care: history, MDM, physical Personally performed: exam, history, MDM, supervision of care Care discussed with: Medical Student Procedures: n/a Results interpretation: Verified all documentation Verification and Attestation of Medical Student E/M Service A medical student performed and documented this service in my presence. I reviewed and verified all information documented by the medical student and made modifications to such information, when appropriate. I personally performed the physical exam and medical decision making. Aleja Franco, Mar 21, 2022,12:26 ISIDRO FRANK Mar 20, 2022 12:07 ALEJA FRANCO MD Mar 21, 2022 12:35
[2022-03-20] MEDS: ACETAMINOPHEN 325 MG TABLET PO PRN ×2 (13:20→23:05)
[2022-03-20] MEDS ORDERED: ACETAMINOPHEN 500 MG TAB (TYLENOL) PO ONE (17:00)
[2022-03-20] MEDS ORDERED: ACETAMINOPHEN 500 MG TAB (TYLENOL) ONE (17:14)
[2022-03-20] MEDS: RT-ALBUTEROL SULF 2.5 MG/3 ML PRE-MIX VIAL INH PRN (22:48)
[2022-03-21] MEDS: CEFEPIME INJECTION 1,000 MG in NS (IVPB) 50 ML IV SCH ×4 (00:21→19:06)
[2022-03-21] MEDS ORDERED: BENZONATATE 100 MG (TESSALON) CAPSULE PO ONE (01:56)
[2022-03-21] MEDS: NS IV 1000 ML 1,000 ML IV SCH ×6 (02:09→23:32)
[2022-03-21] MEDS: BENZONATATE 100 MG (TESSALON) CAPSULE PO SCH ×4 (02:10→21:06)
[2022-03-21] MEDS: RT-ALBUTEROL SULF 2.5 MG/3 ML PRE-MIX VIAL INH PRN (03:53)
[2022-03-21 04:17] LABS: BASOPHILS % (AUTO) 0 % (0-10); EOSINOPHILS % (AUTO) 0 % (0-10); HEMATOCRIT 37 % (40-54); HEMOGLOBIN 12.4 g/dL (13.3-17.7); LYMPHOCYTES # (AUTO) 1.5 10^3/uL (1.0-4.0); LYMPHOCYTES % (AUTO) 5 % (12-44); MEAN CORPUSCULAR HEMOGLOBIN 29 pg (25-34); MEAN CORPUSCULAR HGB CONC 33 g/dL (32-36); MEAN CORPUSCULAR VOLUME 87 fL (80-99); MEAN PLATELET VOLUME 10.5 fL (9.0-12.2); MONOCYTES # (AUTO) 1.6 10^3/uL (0.0-1.0); MONOCYTES % (AUTO) 5 % (0-12); NEUTROPHILS # (AUTO) 28.2 10^3/uL (1.8-7.8); NEUTROPHILS % (AUTO) 85 % (42-75); PLATELET COUNT 277 10^3/uL (130-400)
[2022-03-21] MEDS: ACETAMINOPHEN 325 MG TABLET PO PRN ×3 (04:20→21:06)
[2022-03-21 04:30] LABS: ALBUMIN 3.2 GM/DL (3.2-4.5)
[2022-03-21 04:31] LABS: POTASSIUM 3.8 MMOL/L (3.6-5.0)
[2022-03-21 04:32] LABS: CALCIUM 8.4 MG/DL (8.5-10.1)
[2022-03-21 04:33] LABS: TOTAL PROTEIN 6.1 GM/DL (6.4-8.2)
[2022-03-21 04:35] LABS: BILIRUBIN,TOTAL 0.7 MG/DL (0.1-1.0)
[2022-03-21 04:37] LABS: CREATININE SERUM 0.78 MG/DL (0.60-1.30)
[2022-03-21] MEDS: POTASSIUM CL 10MEQ/50ML IVPB 50 ML IV SCH (05:04)
[2022-03-21] MEDS: NOREPINEPHRINE 8 MG/250 ML 250 ML IV SCH (05:04)
[2022-03-21] MEDS: VASOPRESSIN INJECTION 20 UNIT in NS (IVPB) 100 ML IV SCH (05:04)
[2022-03-21] MEDS: KCL 20 MEQ TAB (K-DUR) PO SCH (05:04)
[2022-03-21] MEDS: MAGNESIUM 1 GM/100 ML IVPB 100 ML IV SCH (05:35)
[2022-03-21] MEDS: RT-ALBUTEROL SULF 2.5 MG/3 ML PRE-MIX VIAL INH SCH ×3 (08:02→21:34)
[2022-03-21] MEDS ORDERED: IBUP-1780 PO (08:49)
[2022-03-21] MEDS ORDERED: LISI40TA9 PO (08:49)
[2022-03-21] MEDS ORDERED: ACHD5005 PO (08:49)
[2022-03-21] MEDS ORDERED: FLUR30CA13 PO (08:49)
[2022-03-21] MEDS ORDERED: HYDR25TA4 PO (08:49)
[2022-03-21] MEDS ORDERED: guaiFENesin/DM (ROBITUSSIN DM) 10 ML UDC PO PRN (09:00)
[2022-03-21] MEDS ORDERED: guaiFENesin/CODEINE (ROBITUSSIN AC) 10ML UDC PO PRN (09:00)
[2022-03-21] MEDS: IBUPROFEN TABLET 200 MG TAB PO PRN (09:38)
--- NOTE | 2022-03-21 10:29 | Physical Therapy Evaluation ---
PT Evaluation-General Medical Diagnosis Admission Date Mar 20, 2022 at 04:40 Medical Diagnosis: septic shock Onset Date: Mar 20, 2022 Therapy Diagnosis Therapy Diagnosis: debility Height/Weight Height (Feet): 5 Height (Inches): 9.00 Weight (Pounds): 225 Weight (Ounces): 0.0 Precautions Precautions/Isolations: Standard Precautions Referral Physician: Domo Reason for Referral: Evaluation/Treatment Medical History Pertinent Medical History: HTN Additional Medical History Leon's esophagus Current History EMS secondary to syncopal episode due to SOB, cough, fever Reviewed History: Yes Social History Home: Single Level Current Living Status: Spouse Prior Prior Level of Function SCALE: Activities may be completed with or without assistive devices. 0-Lfmgnpbodw-jpzdklg completes the activity by him/herself with no assistance from a helper. 5-Set-up or Clean-up Assistance-helper sets up or cleans up; patient completes activity. [place] assists only prior to or following the activity. 4-Supervision or Touching Assistance-helper provides verbal cues and/or touching/steadying and/or contact guard assistance as patient completes activity . Assistance may be provided throughout the activity or intermittently. 3-Partial/Moderate Assistance-helper does LESS THAN HALF the effort. [place] lifts, holds or supports trunk or limbs, but provides less than half the effort. 2-Substantial/Maximal Assistance-helper does MORE THAN HALF the effort. [place] lifts or holds trunk or limbs and provides more than half the effort. 8-Dtmtlvdro-fsqegr does ALL the effort. Patient does none of the effort to complete the activity. Or, the assistance of 2 or more helpers is required for the patient to complete the activity. If activity was not attempted, code reason: 7-Patient Refused. 9-Not Applicable-not attempted and the patient did not perform the activity before the current illness, exacerbation or injury. 10-Not Attempted due to Environmental Limitations-(lack of equipment, weather restraints, etc.). 88-Not Attempted due to Medical Conditions or Safety Concerns. Bed Mobility: 6 Transfers (B,C,W/C): 6 Gait: 6 Stairs: 6 Indoor Mobility (Ambulation): Independent Stairs: Independent Prior Devices Use: None PT Evaluation-Current Subjective Patient is very agreeable to participate with PT. Objective Patient Orientation: Normal For Age Attachments: IV ROM/Strength ROM Lower Extremities bilateral LE WFL Strength Lower Extremities 5/5 grossly bilateral LE all planes Integumentary/Posture Bowel Incontinence: No Bladder Incontinence: No Posture WFL Neuromuscular (Tone, Coordination, Reflexes) grossly intact with all Sensory Vision: Functional Hearing: Functional Transfers Lying to Sitting/Side of Bed(Q: 6 Sit to Stand (QC): 6 Chair/Wsi-ie-Svmyk Xfer(QC): 6 Gait Mode of Locomotion: Walk Anticipated Mode of Locomotion: Walk Walk 10 feet (QC): 6 Walk 50 ft with 2 Turns(QC): 6 Walk 150 ft (QC): 6 Distance: >800' Gait Assistive Device: None Comments/Gait Description safe and functional with no deviation Balance Sitting Static: Normal Sitting Dynamic: Normal Standing Static: Normal Standing Dynamic: Normal Assessment/Needs Patient is currently at independent OF with all gross motor skills safely and does not require skilled PT intervention. Rehab Potential: Good PT Plan Treatment/Plan Treatment Plan: Discontinue PT, goals met Treatment Duration: Mar 21, 2022 Frequency: 1 time per week Estimated Hrs Per Day: .25 hour per day Patient and/or Family Agrees t: Yes Time Time In: 955 Time Out: 1011 DATE: Mar 21, 2022 Total Billed Treatment Time: 16 Total Billed Treatment 1 visit EVLowC 16 min PAKO HAHN PT Mar 21, 2022 10:29
--- NOTE | 2022-03-21 11:06 | Tele-ICU Progress Note ---
Subjective Date Seen by a Provider: Mar 21, 2022 Time Seen by a Provider: 11:06 Subjective/Events-last exam (Tele-ICU Physician , Progress Note ) Service provided via interactive audio and video telecommunications E-CARE system to a patient admitted to ICU bed in [facility]. Patient is seen today due to persistent need of ICU care Available chart/ vitals / labs / Images reviewed Video assessment done using teleICU camera, rest of exam as per RN Discussed with RN Events overnight : Afebrile hemodynamically stable Respiratory - I/O = Drips: Pressors- no Consultants: Hospital course: A/P sepsis - vitals improved with hydration PNA, presumed - on RA - cont abx h/o astham - + wheezing - start on ICS , nebs Lines : , (Central Line Necessity Reviewed) [place]: OG: Nutrition: Analgesia: Anxiety/ delirium VTE Prophylaxis: hep sq Stress Ulcer Prophylaxis: na Plans in collaboration with bedside consultants and IM MDs. Discussed with RN to reach out if any questions or concerns A total of 20 minutes of critical care time was devoted to this patient today, required to treat and/or prevent further deterioration of critical care condition ( as above ) . I am remotely monitoring this patient from another state. I am unable to do the bedside exam, and history/physical and pertinent information is taken from other notes in the computer and bedside staff. Sepsis Event Evaluation Height, Weight, BMI Height: 5'9.00" Weight: 225lbs. 0.0oz. 102.729213kt; 35.56 BMI Method: Focused Exam Lactate Level 03/20/22 07:05: Lactic Acid Level 2.60*H 03/20/22 09:30: Lactic Acid Level 3.25*H 03/20/22 12:08: Lactic Acid Level 2.59*H Exam Exam Patient acknowledged, consented, and participated in this virtual visit which was conducted using real time audio/video Vital Signs Date Time Temp Pulse Resp B/P (MAP) Pulse Ox O2 Delivery O2 Flow Rate FiO2 03/21/22 10:00 102 128/105 (113) 97 Room Air 03/21/22 09:00 110 155/91 (112) 90 Room Air 03/21/22 08:04 93 Room Air 03/21/22 08:00 98 Room Air 03/21/22 08:00 88 122/85 (97) 94 Room Air 03/21/22 07:58 36.2 03/21/22 07:49 36.2 03/21/22 07:46 Room Air 03/21/22 07:00 96 135/83 (100) 95 Nasal Cannula 2.00 03/21/22 07:00 88 03/21/22 06:00 90 126/76 (93) 96 Nasal Cannula 2.00 03/21/22 05:00 101 133/94 (107) 92 Room Air 03/21/22 04:00 96 Nasal Cannula 2.00 03/21/22 04:00 102 135/89 (104) 94 Room Air 03/21/22 03:57 101 95 28 03/21/22 03:53 98 Nasal Cannula 2.00 03/21/22 03:37 98 132/81 (98) 92 Room Air 03/21/22 03:00 98 100/46 (64) 94 Room Air 03/21/22 02:15 104 133/51 (78) 94 Room Air 03/21/22 01:00 104 116/85 (95) 87 Room Air 03/21/22 01:00 104 03/21/22 00:00 37.4 03/21/22 00:00 107 119/72 (88) 87 Room Air 03/20/22 23:59 93 Room Air 03/20/22 23:35 37.4 03/20/22 23:00 110 122/58 (79) 93 Room Air 03/20/22 22:48 96 Room Air 03/20/22 22:39 37.0 03/20/22 22:00 111 113/56 (75) 90 Room Air 03/20/22 21:00 116 122/84 (97) 92 Room Air 03/20/22 20:00 116 115/86 (96) 95 Room Air 03/20/22 20:00 93 Room Air 03/20/22 19:25 37.8 03/20/22 19:00 116 03/20/22 19:00 113 103/63 (76) 90 Room Air 03/20/22 18:43 96 Room Air 03/20/22 18:12 39.5 03/20/22 18:00 117 112/82 (91) 92 Nasal Cannula 2.00 03/20/22 17:16 37.9 03/20/22 17:00 112 116/74 (87) 99 Nasal Cannula 2.00 03/20/22 16:00 98 Room Air 03/20/22 16:00 154 107/67 (80) 95 Nasal Cannula 2.00 03/20/22 15:45 37.5 03/20/22 15:00 117 111/66 (75) 95 Nasal Cannula 2.00 03/20/22 14:00 122 109/62 (78) 91 Nasal Cannula 2.00 03/20/22 13:51 39.0 03/20/22 13:20 39.0 03/20/22 13:00 110 130/76 (93) 99 Nasal Cannula 2.00 03/20/22 12:41 103 03/20/22 12:15 37.9 03/20/22 12:04 36.3 93 96 21 03/20/22 12:01 96 Room Air 03/20/22 12:00 92 123/79 (94) 88 Nasal Cannula 2.00 03/20/22 12:00 98 Room Air I & O 03/21/22 07:00 Intake Total 3230 ml Output Total 4200 ml Balance -970 ml Height & Weight Height: 5'9.00" Weight: 225lbs. 0.0oz. 102.544084aa; 35.56 BMI Method: General Appearance: No Apparent Distress, Obese HEENT: PERRL/EOMI, Pharynx Normal, Moist Mucous Membranes Neck: Full Range of Motion, Non Tender, Supple Respiratory: Chest Non Tender, No Accessory Muscle Use, No Respiratory Distress, Other (decreased breath sounds LLL) Cardiovascular: Regular Rate, Rhythm, No Murmur, Normal Peripheral Pulses Extremity: Normal Capillary Refill, Non Tender, No Calf Tenderness, No Pedal Edema Neurologic/Psychiatric: Alert, Oriented x3, No Motor/Sensory Deficits, Normal Mood/Affect Skin: Normal Color, Warm/Dry Lymphatic: No Adenopathy Results Lab Laboratory Tests 03/20/22 05:12 03/21/22 03:50 Assessment/Plan Assessment/Plan 1 LESLIE DE PAZ MD Mar 21, 2022 11:06
--- NOTE | 2022-03-21 14:32 | Progress Note - Hospitalist ---
MARBIN PINA 03/21/22 1431: Subjective HPI/CC On Admission Date Seen by Provider: Mar 21, 2022 Time Seen by Provider: 10:00 Radha joy a 56 year old male with PMH of HTN, Asthma, Obesity, and gastritis who presented to [facility] on 03/19/22 via EMS after a syncopal episode at home. Prior to passing out the patient has been experiencing SOB, Cough, N/V, decreased appetite, and fever as high as 104 since . Upon arriving to [place] he was found to have be in septic shock with a LA of 5.4, tachycardia, hypotension, and significant leukocytosis. CT while at [place] revealed a large are of consolidation in LLL and Cefepime and azithromycin as well as IVF were initiated prior to transfer to our facilities for ICU care. This morning he reports feeling much better than last night. He continues to have significant SOB and cough, but denies LH, dizziness, CP, palpitations, abd pain, N/V/D, Dysuria, or hematuria. Subjective/Events-last exam Pt was doing well sitting in bed. Pt states that he feels better than yesterday. Pt is currently of pressors, and is able to ambulate on own. Denies any chest pain, palpitations, abdominal pain, and swelling. Pt states he would like to leave ICU and be transferred to the floor so that he can walk more. Review of Systems HEENT: Head Aches Pulmonary: No Dyspnea; Cough Cardiovascular: No: Chest Pain, Palpitations Gastrointestinal: No: Abdominal Pain Focused Exam Lactate Level 03/20/22 07:05: Lactic Acid Level 2.60*H 03/20/22 09:30: Lactic Acid Level 3.25*H 03/20/22 12:08: Lactic Acid Level 2.59*H Objective Exam Vital Signs Vital Signs Date Time Temp Pulse Resp B/P (MAP) Pulse Ox O2 Delivery O2 Flow Rate FiO2 03/21/22 14:05 36.2 95 19 139/85 (103) 96 Room Air 03/21/22 07:00 2.00 03/21/22 03:57 28 Capillary Refill : Respiratory: Lungs Clear, Normal Breath Sounds Cardiovascular: Regular Rate, Rhythm, No Edema, Normal Peripheral Pulses Gastrointestinal: Normal Bowel Sounds, Non Tender, Soft Neurologic/Psychiatric: Alert, Oriented x3 Skin: Normal Color, Warm/Dry Results/Procedures Lab Laboratory Tests 03/21/22 03:50 Patient resulted labs reviewed. Assessment/Plan Assessment and Plan Assess & Plan/Chief Complaint Septic shock Improved Off Pressors CAP CXR- obstructed view due cardiomegaly CT- consistent with left lower lobe pneumonia Blood Culture: Gram Positive Cocci in Chains Continue Cefepime STEPHANY Improved Lactic Acidosis Improving IVF Anemia Continue to monitor Elevated Liver enzymes Likely due to shock Continue to monitor DVT prophylaxis PT Evaluation Ambulation Obesity NAOMI MELÉNDEZ MD 03/21/221956: Subjective HPI/CC On Admission Time Seen by Provider: 11:35 Objective Exam General Appearance: No Apparent Distress, Obese Respiratory: Lungs Clear, No Respiratory Distress Cardiovascular: Regular Rate, Rhythm, No Murmur Gastrointestinal: Normal Bowel Sounds, Soft Extremity: Normal Inspection, No Pedal Edema Neurologic/Psychiatric: Alert, Oriented x3, No Motor/Sensory Deficits Skin: Normal Color, Warm/Dry Assessment/Plan Assessment and Plan Assess & Plan/Chief Complaint Shock resolved. Continue antibiotics for pneumonia. Decrease fluids. Transfer to medical floor. Diagnosis/Problems Diagnosis/Problems (1) Septic shock Status: Resolved Resolution Date/Time: 03/21/22 @ 19:57 (2) PNA (pneumonia) Status: Acute (3) Lactic acidosis Status: Resolved Resolution Date/Time: 03/21/22 @ 19:56 (4) STEPHANY (acute kidney injury) Status: Resolved Resolution Date/Time: 03/21/22 @ 19:56 (5) Anemia Status: Acute (6) Elevated LFTs Status: Acute (7) HTN (hypertension) Status: Chronic (8) Obesity Status: Chronic Supervisory-Addendum Brief Verification & Attestation Participated in pt care: history, MDM, physical Personally performed: exam, history, MDM, supervision of care Care discussed with: Medical Student Procedures: n/a Results interpretation: Verified all documentation A medical student performed and documented this service in my presence. I reviewed and verified all information documented by the medical student and made modifications to such information, when appropriate. I personally performed the physical exam and medical decision making. MARBIN PINA Mar 21, 2022 14:31 NAOMI MELÉNDEZ MD Mar 21, 2022 19:57
[2022-03-21] MEDS ORDERED: ONDANSETRON 4 MG/2 ML (SDV) Z0FRAN IVP PRN (20:00)
[2022-03-21] MEDS ORDERED: HYDROcodone/APAP 5 MG/325 MG (LORTAB) TAB PO PRN (20:00)
[2022-03-21] MEDS ORDERED: polyethylene glycoL POWDER 17 GM (MIRALAX) PACK PO PRN (20:00)
[2022-03-21] MEDS ORDERED: ZOLPIDEM 5 MG (AMBIEN) TAB PO PRN (20:00)
[2022-03-21] MEDS: RT--FLUTICASONE/SALMETEROL 232-14 (AIRDUO RespiCLICK) IH SCH (21:34)
[2022-03-22] MEDS: CEFEPIME INJECTION 1,000 MG in NS (IVPB) 50 ML IV SCH ×3 (01:00→12:21)
[2022-03-22] MEDS: NS IV 1000 ML 1,000 ML IV SCH ×2 (02:06→09:47)
[2022-03-22] MEDS: RT-ALBUTEROL SULF 2.5 MG/3 ML PRE-MIX VIAL INH SCH ×2 (03:05→08:49)
[2022-03-22 03:33] VITALS: BP 150/91
[2022-03-22] MEDS: ACETAMINOPHEN 325 MG TABLET PO PRN (03:44)
[2022-03-22 05:37] LABS: BASOPHILS # (AUTO) 0.1 10^3/uL (0.0-0.1); BASOPHILS % (AUTO) 1 % (0-10); EOSINOPHILS # (AUTO) 0.5 10^3/uL (0.0-0.3); EOSINOPHILS % (AUTO) 2 % (0-10); HEMATOCRIT 36 % (40-54); HEMOGLOBIN 11.8 g/dL (13.3-17.7); LYMPHOCYTES % (AUTO) 9 % (12-44); MEAN CORPUSCULAR HEMOGLOBIN 29 pg (25-34); MEAN CORPUSCULAR HGB CONC 33 g/dL (32-36); MEAN CORPUSCULAR VOLUME 87 fL (80-99); MONOCYTES # (AUTO) 1.5 10^3/uL (0.0-1.0); MONOCYTES % (AUTO) 7 % (0-12); NEUTROPHILS # (AUTO) 17.6 10^3/uL (1.8-7.8); NEUTROPHILS % (AUTO) 79 % (42-75); PLATELET COUNT 268 10^3/uL (130-400); WHITE BLOOD COUNT 22.4 10^3/uL (4.3-11.0)
[2022-03-22 05:59] LABS: BILIRUBIN,TOTAL 0.7 MG/DL (0.1-1.0); CALCIUM 8.5 MG/DL (8.5-10.1); CREATININE SERUM 0.81 MG/DL (0.60-1.30); POTASSIUM 3.7 MMOL/L (3.6-5.0)
[2022-03-22 07:20] VITALS: BP 159/90
[2022-03-22] MEDS: IBUPROFEN TABLET 200 MG TAB PO PRN (08:04)
[2022-03-22] MEDS: RT--FLUTICASONE/SALMETEROL 232-14 (AIRDUO RespiCLICK) IH SCH (08:50)
[2022-03-22] MEDS: BENZONATATE 100 MG (TESSALON) CAPSULE PO SCH ×2 (09:36→12:21)
[2022-03-22 11:34] VITALS: BP 141/93
[2022-03-22] MEDS ORDERED: LEVO750T PO (12:56)
[2022-03-22 15:39] VITALS: BP 141/93
[2022-03-22] MEDS ORDERED: ALB0.5V INH (16:31)
[2022-03-22 16:34] VITALS: BP 168/95
--- NOTE | 2022-03-22 18:43 | Discharge Summary ---
Discharge Summary Hospital Course Problems/Dx: (1) Septic shock Status: Resolved (2) PNA (pneumonia) Status: Acute (3) Lactic acidosis Status: Resolved (4) STEPHANY (acute kidney injury) Status: Resolved (5) Anemia Status: Acute (6) Elevated LFTs Status: Acute (7) HTN (hypertension) Status: Chronic (8) Obesity Status: Chronic Hospital Course Date of Admission: Mar 20, 2022 at 04:40 Admission Diagnosis : Septic shock due to pneumonia Family Physician/Provider: Akshat Cevallos MD Date of Discharge: 03/22/22 Discharge Diagnosis: Septic shock due to pneumonia Hospital Course: Paul Aldana is a 56 year old male who was admitted with septic shock due to pneumonia. He was treated with IV fluids and antibiotics and he improved. His course was complicated by acute kidney injury and elevated LFTs which improved with treatment. He was given a course of Levaquin to complete as an outpatient. He had a significantly elevated WBC of 35 on arrival which improved to 22 at the time of discharge. He should have repeat labs to monitor his WBC, kidney function, and liver enzymes, prior to his follow up appointment with his PCP in about a week. He was also given a prescription for Albuterol nebulizers to use as needed. He was discharged home in stable condition. Labs and Pending Lab Test: Laboratory Tests 03/22/22 05:25: White Blood Count 22.4H, Red Blood Count 4.12L, Hemoglobin 11.8L, Hematocrit 36L , Mean Corpuscular Volume 87, Mean Corpuscular Hemoglobin 29, Mean Corpuscular Hemoglobin Concent 33, Red Cell Distribution Width 13.9, Platelet Count 268, Mean Platelet Volume 10.0, Immature Granulocyte % (Auto) 3, Neutrophils (%) (Auto) 79H, Lymphocytes (%) (Auto) 9L, Monocytes (%) (Auto) 7, Eosinophils (%) (Auto) 2, Basophils (%) (Auto) 1, Neutrophils # (Auto) 17.6H, Lymphocytes # (Auto) 2.0, Monocytes # (Auto) 1.5H, Eosinophils # (Auto) 0.5H, Basophils # (Auto) 0.1, Immature Granulocyte # (Auto) 0.6H, Sodium Level 142, Potassium L evel 3.7, Chloride Level 110H, Carbon Dioxide Level 22, Anion Gap 10, Blood Urea Nitrogen 12, Creatinine 0.81, Estimat Glomerular Filtration Rate 104, BUN/Creatinine Ratio 15, Glucose Level 108H, Calcium Level 8.5, Corrected Calcium 9.3, Total Bilirubin 0.7, Aspartate Amino Transf (AST/SGOT) 168H, Alanine Aminotransferase (ALT/SGPT) 167H, Alkaline Phosphatase 124, Total Protein 6.0L, Albumin 3.0L Microbiology 03/20/22 Gram Stain - Final, Complete 03/20/22 Sputum Culture - Final, Complete Usual upper respiratory sudarshan 03/20/22 Blood Culture - Preliminary, Resulted No growth 03/20/22 Urine Culture - Final, Complete Probable Enterococcus Species Home Meds Active Albuterol Sulfate 2.5 Mg/0.5 Ml Vial.neb 2.5 Mg INH Q6H 14 Days Levofloxacin 750 Mg Tablet 750 Mg PO DAILY 5 Days Reported Flurazepam HCl 30 Mg Capsule 30 Mg PO HS PRN Hydrocodone-Acetamin 5-325 mg (Hydrocodone/Acetaminophen) 5 Mg-325 Mg Tablet 1 Ea PO DAILY PRN Hydrochlorothiazide 25 Mg Tablet 25 Mg PO DAILY Lisinopril 40 Mg Tablet 40 Mg PO DAILY Ibuprofen 800 Mg Tablet 800 Mg PO DAILY PRN Nexium (Esomeprazole Magnesium) 40 Mg Cap 40 Mg PO DAILY PRN Dulera 200 Mcg/5 Mcg Inhaler (Mometasone/Formoterol) 200 Mcg-5 Mcg/Actuation Hfa.aer.ad 1-2 Puff IH DAILY PRN Assessment/Pt Instructions See instructions Discharge Planning: >30 minutes discharge planning Discharge Instructions Discharge Diet: No Restrictions Activity as Tolerated: Yes Discharge Physical Examination Vital Signs Vital Signs Date Time Temp Pulse Resp B/P (MAP) Pulse Ox O2 Delivery O2 Flow Rate FiO2 03/22/22 16:34 36.7 77 22 168/95 (119) 95 Room Air 03/22/22 15:39 0.00 03/21/22 03:57 28 General Appearance: No Apparent Distress, Obese Respiratory: Lungs Clear, No Respiratory Distress Cardiovascular: Regular Rate, Rhythm, No Murmur Gastrointestinal: Normal Bowel Sounds, Soft Extremity: Normal Inspection, No Pedal Edema Neurologic/Psychiatric: Alert, No Motor/Sensory Deficits Allergies: Coded Allergies: No Known Drug Allergies (Unverified , 10/04/18) Discharge Summary Date of Admission Mar 20, 2022 at 04:40 Date of Discharge Mar 22, 2022 at 15:30 Discharge Date: Mar 22, 2022 Discharge Time: 15:30 Admission Diagnosis Septic Shock secondary to CAP Discharge Diagnosis Septic shock due to pneumonia (1) Septic shock Status: Resolved (2) PNA (pneumonia) Status: Acute (3) Lactic acidosis Status: Resolved (4) STEPHANY (acute kidney injury) Status: Resolved (5) Anemia Status: Acute (6) Elevated LFTs Status: Acute (7) HTN (hypertension) Status: Chronic (8) Obesity Status: Chronic NAOMI MELÉNDEZ MD Mar 22, 2022 18:43
== END 2022-03-22 15:30 | disposition home or self-care (01) | DRG 871 ==
LOC: ICU 04:40 → 4TH 03-21 13:11
PROVIDERS: ADMIT Family Medicine; ATTEND Internal Medicine
DX: A41.9 Sepsis, unspecified organism (principal); J18.9 Pneumonia, unspecified organism; R65.21 Severe sepsis with septic shock; N17.9 Acute kidney failure, unspecified; E87.20 Acidosis, unspecified; D64.9 Anemia, unspecified; I10 Essential (primary) hypertension; J45.909 Unspecified asthma, uncomplicated; E66.9 Obesity, unspecified; Z68.35 Body mass index [BMI] 35.0-35.9, adult; K21.9 Gastro-esophageal reflux disease without esophagitis; H54.7 Unspecified visual loss
CPT/HCPCS: 36415; 80053; 81000; 83605; 83735; 85007; 85025; 85027; 87040; 87070; 87081; 87088; 87205; 94640

== ENCOUNTER 2022-06-30 13:22 | Emergency (ER) | payer OTHER ==
[~2022-06-30] VITALS: Ht 175 cm; Wt 101.0 kg
[~2022-06-30 13:22] MED LIST changes: +ACHD5005 PO; +ALB0.5V INH; +FLUR30CA13 PO; +HYDR25TA4 PO; +IBUP-1780 PO; +LEVO750T PO; +LISI40TA9 PO
--- NOTE | 2022-06-30 13:38 | ED GU-Male ---
General Chief Complaint: - Reproductive Stated Complaint: ABD PAIN | LOWER BACK PAIN | TROUBLE URINATING Nursing Triage Note: ARRIVED VIA AMB WITH COMPLAINTS OF LOWER ABD/GROIN PAIN STARTING THIS MORNING. Source: patient Exam Limitations: no limitations History of Present Illness Date Seen by Provider: June 30, 2022 Time Seen by Provider: 13:36 Initial Comments Patient is a 56-year-old male who presents to ED with lower abdominal pain and groin pain. Symptoms started about a week ago. States he had some intermittent lower abdominal discomfort and groin pain. This pain has progressed over the past day. Worse this morning. States he feels slightly distended. Pain radiating through his left groin and into his penis. States he has been urinating just fine until around 9:00 this morning he dribbled while urinating. Reports increased urine urgency. Denies of any flank pain or back pain at this time. Denies of any scrotum pain, scrotum swelling, perineum pain or discomfort. Denies history of similar symptoms. Denies history of enlarged prostate. No history of kidney stones. Denies nausea, vomit, diarrhea, chest pain, shortness of breath, fever, chills Allergies and Home Medications Allergies Coded Allergies: No Known Drug Allergies (Unverified , 10/04/18) Patient Home Medication List Home Medication List Reviewed: Yes Albuterol Sulfate (Albuterol Sulfate) 2.5 Mg/0.5 Ml Vial.neb, 2.5 MG INH Q6H Prescribed by: NAOMI MELÉNDEZ on 03/22/22 1631 Esomeprazole Magnesium (Nexium) 40 Mg Cap, 40 MG PO DAILY PRN for HEARTBURN, (Reported) Entered as Reported by: BETZY CORDOBA on 10/04/18 1403 Flurazepam HCl (Flurazepam HCl) 30 Mg Capsule, 30 MG PO HS PRN for INSOMNIA, (Reported) Entered as Reported by: JUDY KELLER on 03/21/22 0849 Hydrochlorothiazide (Hydrochlorothiazide) 25 Mg Tablet, 25 MG PO DAILY, (Reported) Entered as Reported by: JUDY KELLER on 03/21/22 0849 Hydrocodone/Acetaminophen (Hydrocodone-Acetamin 5-325 mg) 5 Mg-325 Mg Tablet, 1 EA PO DAILY PRN for PAIN-MODERATE (5-7), (Reported) Entered as Reported by: JUDY KELLER on 03/21/22 0849 Hydrocodone/Acetaminophen (Hydrocodone-Acetamin 5-325 mg) 5 Mg-325 Mg Tablet, 1 TAB PO Q4H PRN for PAIN-MODERATE (5-7) Prescribed by: SHANTELLE QUINTANA on 06/30/22 1456 Ibuprofen (Ibuprofen) 800 Mg Tablet, 800 MG PO DAILY PRN for PAIN-MILD (1-4), (Reported) Entered as Reported by: JUDY KELLER on 03/21/22 0849 Ketorolac Tromethamine (Ketorolac Tromethamine) 10 Mg Tablet, 10 MG PO TID Prescribed by: SHANTELLE QUINTANA on 06/30/22 1455 Levofloxacin (Levofloxacin) 750 Mg Tablet, 750 MG PO DAILY Prescribed by: NAOMI MELÉNDEZ on 03/22/22 1256 Lisinopril (Lisinopril) 40 Mg Tablet, 40 MG PO DAILY, (Reported) Entered as Reported by: JUDY KELLER on 03/21/22 0849 Mometasone/Formoterol (Dulera 200 Mcg/5 Mcg Inhaler) 200 Mcg-5 Mcg/Actuation Hfa.aer.ad, 1-2 PUFF IH DAILY PRN for SHORTNESS OF BREATH, (Reported) Entered as Reported by: BETZY CORDOBA on 10/04/18 1357 Tamsulosin HCl (Flomax) 0.4 Mg Cap, 0.4 MG PO DAILY Prescribed by: SHANTELLE QUINTANA on 06/30/22 1455 Review of Systems Review of Systems Constitutional: No chills, No diaphoresis, No malaise, No weakness EENTM: No hearing loss, No double vision Respiratory: No cough, No dyspnea on exertion Cardiovascular: No chest pain, No edema, No palpitations Gastrointestinal: abdominal pain; No diarrhea, No nausea, No vomiting Genitourinary: denies burning, denies discharge; pain, urgency Musculoskeletal: No back pain, No joint pain Skin: No change in color, No change in hair/nails All Other Systemes Reviewed Negative Unless Noted: Yes Past Jlzvggy-Lpmfkq-Vxazzy Hx Patient Social History Tobacco Use?: No Substance use?: No Alcohol Use?: Yes Alcohol Frequency: Once in a while Seasonal Allergies Seasonal Allergies: No Past Medical History Surgeries: Yes (rhinoplasty, knee scope) Nose, Orthopedic Respiratory: Yes Asthma Cardiac: Yes Hypertension Neurological: No Genitourinary: No Gastrointestinal: Yes (chronic gastritis) Gastroesophageal Reflux, Leon's Esophagus Musculoskeletal: No Endocrine: No HEENT: No Cancer: No Psychosocial: No Integumentary: No Blood Disorders: No Family Medical History Cancer, Diabetes, Other Conditions/Hx Physical Exam Vital Signs Vital Signs - First Documented 06/30/22 13:25 Temp 35.4 Pulse 98 Resp 16 B/P (MAP) 177/96 (123) Pulse Ox 99 O2 Delivery Room Air Capillary Refill : Less Than 3 Seconds Height, Weight, BMI Height: 5'9.00" Weight: 225lbs. 0.0oz. [id number]; 32.00 BMI Method: General Appearance: WD/WN, no apparent distress HEENT: PERRL/EOMI, normal ENT inspection, TMs normal, pharynx normal Neck: non-tender, full range of motion, supple, normal inspection Cardiovascular: regular rate, rhythm, no edema, no gallop, no JVD Respiratory: chest non-tender, lungs clear, normal breath sounds, no respiratory distress Gastrointestinal: normal bowel sounds, soft, no organomegaly, tenderness (Suprapubic tenderness, left lower quadrant tenderness. 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, no motor/sensory deficits, alert, normal mood/affect, oriented x 3 Skin: normal color, warm/dry Progress/Results/Core Measures Suspected Sepsis SIRS Temperature: Pulse: 98 Respiratory Rate: 16 Laboratory Tests 06/30/22 13:30: White Blood Count 13.3H Blood Pressure 177 /96 Mean: 123 Laboratory Tests 06/30/22 13:30: Creatinine 1.18, Platelet Count 372, Total Bilirubin 0.4 Results/Orders Lab Results Laboratory Tests Test 06/30/22 13:30 06/30/22 13:40 Range/Units White Blood Count 13.3 H 4.3-11.0 10^3/uL Red Blood Count 5.52 4.30-5.52 10^6/uL Hemoglobin 15.9 13.3-17.7 g/dL Hematocrit 46 40-54 % Mean Corpuscular Volume 84 80-99 fL Mean Corpuscular Hemoglobin 29 25-34 pg Mean Corpuscular Hemoglobin Concent 34 32-36 g/dL Red Cell Distribution Width 13.3 10.0-14.5 % Platelet Count 372 130-400 10^3/uL Mean Platelet Volume 9.8 9.0-12.2 fL Immature Granulocyte % (Auto) 0 % Neutrophils (%) (Auto) 71 42-75 % Lymphocytes (%) (Auto) 21 12-44 % Monocytes (%) (Auto) 7 0-12 % Eosinophils (%) (Auto) 2 0-10 % Basophils (%) (Auto) 0 0-10 % Neutrophils # (Auto) 9.4 H 1.8-7.8 10^3/uL Lymphocytes # (Auto) 2.7 1.0-4.0 10^3/uL Monocytes # (Auto) 0.9 0.0-1.0 10^3/uL Eosinophils # (Auto) 0.2 0.0-0.3 10^3/uL Basophils # (Auto) 0.1 0.0-0.1 10^3/uL Immature Granulocyte # (Auto) 0.0 0.0-0.1 10^3/uL Sodium Level 137 135-145 MMOL/L Potassium Level 3.6 3.6-5.0 MMOL/L Chloride Level 100 98-107 MMOL/L Carbon Dioxide Level 22 21-32 MMOL/L Anion Gap 15 H 5-14 MMOL/L Blood Urea Nitrogen 17 7-18 MG/DL Creatinine 1.18 0.60-1.30 MG/DL Estimat Glomerular Filtration Rate 73 BUN/Creatinine Ratio 14 Glucose Level 110 H 70-105 MG/DL Calcium Level 9.7 8.5-10.1 MG/DL Corrected Calcium 8.5-10.1 MG/DL Total Bilirubin 0.4 0.1-1.0 MG/DL Aspartate Amino Transf (AST/SGOT) 20 5-34 U/L Alanine Aminotransferase (ALT/SGPT) 29 0-55 U/L Alkaline Phosphatase 49 40-136 U/L Total Protein 8.1 6.4-8.2 GM/DL Albumin 4.8 H 3.2-4.5 GM/DL Lipase 56 8-78 U/L Urine Color YELLOW Urine Clarity CLEAR Urine pH 5.5 5-9 Urine Specific [place] 1.025 H 1.016-1.022 Urine Protein NEGATIVE NEGATIVE Urine Glucose (UA) NEGATIVE NEGATIVE Urine Ketones TRACE H NEGATIVE Urine Nitrite NEGATIVE NEGATIVE Urine Bilirubin NEGATIVE NEGATIVE Urine Urobilinogen 0.2 < = 1.0 MG/DL Urine Leukocyte Esterase NEGATIVE NEGATIVE Urine RBC (Auto) 3+ H NEGATIVE Urine RBC 2-5 H /HPF Urine WBC NONE /HPF Urine Squamous Epithelial Cells RARE /HPF Urine Crystals NONE /LPF Urine Bacteria NEGATIVE /HPF Urine Casts NONE /LPF Urine Mucus NEGATIVE /LPF Urine Culture Indicated NO My Orders Orders - ALIYA GURROLA Ua Culture If Indicated (06/30/22 13:25) Cbc With Automated Diff (06/30/22 13:35) Comprehensive Metabolic Panel (06/30/22 13:35) Lipase (06/30/22 13:35) Ct Abd/Pelvis Wo(Kidney Stone) (06/30/22 13:35) Fentanyl Inj (Sublimaze Injection) (06/30/22 13:41) Bladder Scan (06/30/22 13:41) Catheter(Urinary) Insert & Ass 03,15 (06/30/22 13:41) Lidocaine 2% (Urojet) (Xylocaine Urojet) (06/30/22 13:45) Ketorolac Injection (Toradol Injection) (06/30/22 14:15) Ns Iv 1000 Ml (Sodium Chloride 0.9%) (06/30/22 14:28) Medications Given in ED Current Medications Medications Dose Ordered Sig/Simi Route Start Time Stop Time Status Last Admin Dose Admin Ketorolac Tromethamine 30 mg ONCE ONCE IVP 06/30/22 14:15 06/30/22 14:16 DC 06/30/22 14:23 30 MG Vital Signs/I&O 06/30/22 06/30/22 13:25 15:22 Temp 35.4 36.0 Pulse 98 82 Resp 16 18 B/P (MAP) 177/96 (123) 133/94 Pulse Ox 99 100 O2 Delivery Room Air Room Air Capillary Refill : Less Than 3 Seconds Blood Pressure Mean: 123 Departure Communication (PCP) Patient presents ED with suprapubic discomfort groin pain. Intermittent pain over the past week worse over the past day and a half. Feels like pressure is coming out of his penis. Denies of any scrotum pain, scrotum swelling, perineum pain. No history of enlarged prostate. Denies history of previous abdominal surgery. On arrival patient in mild to moderate distress. Patient reports dribbling of urine right before arrival. Bladder scan was performed which noted 1 ml in bladder. Rule out distal obstruction. Able to urinate here small amount. Concerning for prostatitis,enlarge prostate urolithiasis, cystitis. CBC, CMP, urinalysis was ordered. CBC showed slight elevated white blood count 13. Chemistry grossly unremarkable with normal kidney function. Urinalysis positive for hematuria without evidence of infection. Patient was given fentanyl initially for pain without much improvement. Patient Was given a dose of Toradol with improvement of pain. Started on a liter of fluid. No vomiting or diarrhea or fever. No flank pain. CT abdomen and pelvis showed Calculus in the distal left ureter measuring 5 mm with mild left-sided hydroureteronephrosis. Patient is currently pain-free. No history of kidney stones. I Continued monitoring patient here without any acute changes. Discussed with patient likely the 5 mm stone will not pass and may require further urology intervention such as lithotripsy. Provided discharge instructions for follow-up with urology at [facility]. Will discharge with Flomax, Toradol and [place] as needed. Discussed the importance of oral hydration. If increased pain, not urinating, fever he will need to return back to ED. Follow up with pcp in 2 to 3 days for reevaluation. Impression Primary Impression: Ureterolithiasis Disposition: 01 HOME, SELF-CARE Condition: Stable Departure-Patient Inst. Decision time for Depature: 14:54 Referrals: TA HERBERT MD (PCP/Family) Primary Care Physician Patient Instructions: Kidney Stone Diet, Renal Colic Add. Discharge Instructions: Recommend contact your primary care physician for a follow-up. Need to follow- up with urology for further evaluation. May require lithotripsy. Recommend taking Toradol. Hydrocodone for breakthrough pain. Flomax to help urinate. Recommend drinking plain water. If continue worsening pain. Not urinating to return back to the ED. [facility] [phone] All discharge instructions reviewed with patient and/or family. Voiced understanding. Scripts Hydrocodone/Acetaminophen (Hydrocodone-Acetamin 5-325 mg) 5 Mg-325 Mg Tablet 1 TAB PO Q4H PRN for PAIN-MODERATE (5-7), #8 TAB Prov: ALIYA GURROLA 06/30/22 Ketorolac Tromethamine (Ketorolac Tromethamine) 10 Mg Tablet 10 MG PO TID, #15 TAB Prov: ALIYA GURROLA 06/30/22 Tamsulosin HCl (Flomax) 0.4 Mg Cap 0.4 MG PO DAILY, #20 CAP Prov: ALIYA GURROLA 06/30/22 Work/School Note: Work Release Form Date Seen in the Emergency Department: June 30, 2022 Return to Work: July 04, 2022 ALIYA GRUROLA June 30, 2022 13:38
[2022-06-30 13:40] LABS: BASOPHILS # (AUTO) 0.1 10^3/uL (0.0-0.1); BASOPHILS % (AUTO) 0 % (0-10); EOSINOPHILS # (AUTO) 0.2 10^3/uL (0.0-0.3); EOSINOPHILS % (AUTO) 2 % (0-10); HEMATOCRIT 46 % (40-54); HEMOGLOBIN 15.9 g/dL (13.3-17.7); LYMPHOCYTES # (AUTO) 2.7 10^3/uL (1.0-4.0); LYMPHOCYTES % (AUTO) 21 % (12-44); MEAN CORPUSCULAR HEMOGLOBIN 29 pg (25-34); MEAN CORPUSCULAR HGB CONC 34 g/dL (32-36); MEAN CORPUSCULAR VOLUME 84 fL (80-99); MEAN PLATELET VOLUME 9.8 fL (9.0-12.2); MONOCYTES # (AUTO) 0.9 10^3/uL (0.0-1.0); MONOCYTES % (AUTO) 7 % (0-12); NEUTROPHILS # (AUTO) 9.4 10^3/uL (1.8-7.8); NEUTROPHILS % (AUTO) 71 % (42-75); PLATELET COUNT 372 10^3/uL (130-400); WHITE BLOOD COUNT 13.3 10^3/uL (4.3-11.0)
[2022-06-30] MEDS ORDERED: fentaNYL INJ 100 MCG/2 ML AMP IVP STA (13:41)
[2022-06-30] MEDS ORDERED: LIDOCAINE UROJET 2% GEL 10 ML PKG TOP ONE (13:45)
[2022-06-30 13:46] LABS: BILIRUBIN,URINE NEGATIVE (NEGATIVE); CLARITY,URINE CLEAR; COLOR,URINE YELLOW; GLUCOSE, URINE (UA) NEGATIVE (NEGATIVE); KETONES,URINE TRACE (NEGATIVE); LEUKOCYTE ESTERASE ,URINE NEGATIVE (NEGATIVE); NITRITE,URINE NEGATIVE (NEGATIVE); PH,URINE 5.5 (5-9); PROTEIN,URINE NEGATIVE (NEGATIVE)
[2022-06-30 13:47] LABS: ALBUMIN 4.8 GM/DL (3.2-4.5)
[2022-06-30 13:48] LABS: CHLORIDE 100 MMOL/L (98-107); POTASSIUM 3.6 MMOL/L (3.6-5.0); SODIUM 137 MMOL/L (135-145)
[2022-06-30 13:49] LABS: CALCIUM 9.7 MG/DL (8.5-10.1)
[2022-06-30 13:50] LABS: GLUCOSE 110 MG/DL (70-105); TOTAL PROTEIN 8.1 GM/DL (6.4-8.2)
[2022-06-30 13:51] LABS: CARBON DIOXIDE 22 MMOL/L (21-32)
[2022-06-30 13:52] LABS: BILIRUBIN,TOTAL 0.4 MG/DL (0.1-1.0)
[2022-06-30 13:53] LABS: ALKALINE PHOSPHATASE 49 U/L (40-136); CREATININE SERUM 1.18 MG/DL (0.60-1.30); GFR ESTIMATED 73
[2022-06-30 13:54] LABS: BUN/CREATININE RATIO 14
[2022-06-30 13:54] LABS: BACTERIA,URINE NEGATIVE /HPF; SQUAMOUS EPITHELIAL CELL,UR RARE /HPF
[2022-06-30 13:56] LABS: ALANINE AMINOTRANSFERASE 29 U/L (0-55)
[2022-06-30 13:57] LABS: LIPASE 56 U/L (8-78)
[2022-06-30] MEDS ORDERED: KETOROLAC 30 MG/ML VIAL IVP ONE (14:15)
--- NOTE | 2022-06-30 14:18 | Diagnostic Imaging Report ---
PROCEDURE: CT urinary tract, rule out kidney stone. TECHNIQUE: Multiple contiguous axial images were obtained through the abdomen and pelvis without the use of intravenous contrast. Auto Exposure Controls were utilized during the CT exam to meet ALARA standards for radiation dose reduction. INDICATION: Pelvic pain. COMPARISON: None. FINDINGS: The heart is unremarkable. The lung bases are clear. A calculus is seen in the distal left ureter just before the left UVJ measuring 5 mm with mild left-sided hydroureteronephrosis. No hydronephrosis is seen in the right kidney. Punctate nonobstructing calculi are seen in the right kidney. The urinary bladder is nondistended. There is hepatic steatosis. The gallbladder is nondilated. The spleen, pancreas, and adrenal glands have a normal appearance. There is no pathologically enlarged mesenteric or retroperitoneal adenopathy. The bowel loops are nondilated. The appendix is visualized in the right lower quadrant and has a normal appearance. There is no free fluid or free air. No acute osseous abnormalities. Scattered calcified aortic atherosclerotic plaque is seen without evidence of aneurysm. There is no free air, loculated collection, or adenopathy in the pelvis. IMPRESSION: 1. Calculus in the distal left ureter measuring 5 mm with mild left-sided hydroureteronephrosis. 2. Punctate nonobstructing calculi in the right kidney. 3. Hepatic steatosis. Dictated by: Dictated on workstation # [id number]
[2022-06-30] MEDS ORDERED: NS IV 1000 ML 1,000 ML IV STA (14:28)
[2022-06-30] MEDS ORDERED: TMSL.4C PO (14:55)
[2022-06-30] MEDS ORDERED: KETO10TA PO (14:55)
[2022-06-30] MEDS ORDERED: ACHD5005 PO (14:55)
[2022-06-30 15:22] VITALS: BP 133/94
== END 2022-06-30 15:22 | disposition home or self-care (01) ==
LOC: EDUNIT# 13:22 → ER 13:23
DX: N13.2 Hydronephrosis with renal and ureteral calculous obstruction (principal)
CPT/HCPCS: 36415; 74176; 80053; 81000; 83690; 85025